=== PATIENT | female | born 1995 | race African-American/Black ===

== ENCOUNTER 2018-12-20 03:12 | Emergency (ER) | payer MEDICAID ==
[~2018-12-20] VITALS: Ht 162.6 cm; Wt 68.0 kg
[2018-12-20 03:16] VITALS: Ht 162.6 cm; Wt 68.0 kg
[2018-12-20 03:56] VITALS: BP 122/74
== END 2018-12-20 03:56 | disposition home or self-care (01) ==
LOC: ED 03:12
DX: H66.92 Otitis media, unspecified, left ear (principal); H60.92 Unspecified otitis externa, left ear